=== PATIENT | female | born 1970 | race Caucasian/White ===

== ENCOUNTER 2017-04-01 08:51 | Emergency (ER) | payer OTHER ==
[~2017-04-01] VITALS: Wt 96.0 kg
[~2017-04-01 08:51] MED LIST: ACET325T45 PO; CODE118S PO; IBUP800T25 PO; NASO17 NASAL; ONDA4TAB95 PO; PHEN-651 PO
[2017-04-01] MEDS ORDERED: morphine 4 MG/ML VIAL IV STA (10:09)
[2017-04-01] MEDS ORDERED: ONDANSETRON 4 MG INJ IV STA (10:09)
[2017-04-01 10:52] LABS: BASOPHIL # 0.1 10^3/ul (0.0-0.1); BASOPHILS % 0.4 % (0.0-2.0); EOSINOPHILS % 0.1 % (0.0-7.0); HEMATOCRIT 39.7 % (37.0-47.0); HEMOGLOBIN 13.3 g/dl (12.0-16.0); LYMPHOCYTES % 6.9 % (15.0-51.0); MEAN CORPUSCULAR HGB CONC 33.5 g/dl (32.0-37.0); MEAN CORPUSCULAR VOLUME 95.4 fl (82.0-101.0); MEAN PLATELET VOLUME 10.3 fl (7.4-10.4); MONOCYTE # 0.8 10^3/ul (0.3-0.9); MONOCYTES % 5.4 % (0.0-11.0); NEUTROPHIL # 12.3 10^3/ul (1.6-7.5); NEUTROPHILS % 86.6 % (39.0-77.0); PLATELET COUNT 175 10^3/UL (140-415); RED BLOOD COUNT 4.16 10^6/ul (4.20-5.40); WHITE BLOOD COUNT 14.2 10^3/ul (4.8-10.8)
[2017-04-01 10:56] LABS: ADD UMIC YES; UR ASCORBIC ACID NEGATIVE (NEGATIVE); UR BACTERIA FEW /HPF (NONE SEEN); UR BILIRUBIN (Dip) NEGATIVE (NEGATIVE); UR BLOOD (Dip) NEGATIVE (NEGATIVE); UR CLARITY CLEAR (CLEAR); UR COLOR YELLOW (YELLOW); UR GLUCOSE (Dip) NEGATIVE (NEGATIVE); UR KETONES (Dip) NEGATIVE (NEGATIVE); UR LEUKOCYTE ESTERASE (Dip) TRACE Leu/ul (NEGATIVE); UR MUCUS FEW /HPF (NONE SEEN); UR NITRITE (Dip) NEGATIVE (NEGATIVE); UR RBC 2 /HPF (0-5); UR SPECIFIC GRAVITY (Dip) 1.023 (1.003-1.030); UR TOTAL PROTEIN (Dip) 2+ mg/dl (NEGATIVE); UR UROBILINOGEN (Dip) 2+ mg/dL (NEGATIVE)
[2017-04-01 11:10] LABS: ALBUMIN 4.5 g/dl (3.3-4.9); BILIRUBIN,INDIRECT 1.2 mg/dl (0-1.1); BILIRUBIN,TOTAL 1.2 mg/dl (0.2-1.3); CALCIUM 9.2 mg/dl (8.4-10.2); CREATININE 0.84 mg/dl (0.44-1.00); POTASSIUM 3.7 mmol/L (3.5-5.1)
--- NOTE | 2017-04-01 11:33 | RADRPT ---
PROCEDURE: CT Abdomen and Pelvis without contrast. CLINICAL INDICATION: Abdominal and pelvic pain. Left lower quadrant pain. TECHNIQUE: CT scan of the abdomen and pelvis without contrast was performed. Coronal and sagittal reformatted images were obtained from the axial source images. Images were reviewed on a high-resolu tion PACS workstation. Total exam DLP is 1368.99 mGy-cm. CTDIvol is 22.17 mGy. One or more of the following dose reduction techniques were used: Automated exposure control, adjustment of the mA and/ or kV according to patient size, use of iterative reconstruction technique. COMPARISON: CT scan of the abdomen and pelvis dated 01/28/2016. FINDINGS: The lung bases are normal. There is no pleural effusion. The liver is normal in size and diffusely decreased attenuation consistent with fatty metamorphosis. There is no focal hepatic lesion. The gallbladder is surgically absent with clips noted in the gallbladder bed. The spleen is normal in size. There is no focal splenic lesion. Both adrenals are normal with no enlargement or mass. The pancreas is unremarkable with no mass or evidence of pancreatitis. The right kidney is normal with no hydronephrosis, mass, or calculus. The left kidney is grossly abn ormal with marked hydronephrosis and marked thinning of the parenchyma. Calculi are present in the l eft kidney measuring up to 1.2 cm in diameter. The left renal pelvis is markedly enlarged measuring 10 x 11 cm and the left ureter is not visualized. The abdominal aorta is not dilated. There is calcification in the aorta consistent with atherosclero sis. There is no retroperitoneal lymphadenopathy or mass. There is no pelvic lymphadenopathy or mass. The bladder and distal ureters are normal. The periappendiceal region is unremarkable with no evidence of appendicitis. There has been interval surgery in the interval since the prior study with last in small bowel in the midabdomen. There is an umbilical hernia containing a small amount of small bowel without evide nce of obstruction. The bowel and mesentery are otherwise normal. There is no free fluid or free gas. There are mild degenerative changes of the spine. IMPRESSION: 1. Fatty metamorphosis of the liver. 2. Status post cholecystectomy. 3. Chronic hydronephrosis of the left kidney consistent with probable UPJ obstruction. Nonobstructi ng calculi in the left kidney as seen previously. 4. Atherosclerosis. 5. Surgery with last in the small bowel in the midabdomen. 6. Umbilical hernia containing small amount of small bowel without evidence of obstruction. 7. Mild degenerative changes of the spine. RPTAT: QQ .Charles Sin MD, Date Time Electronically viewed and signed by .Charles Sin MD, on 04/01/2017 11:33 .R/
[2017-04-01] MEDS ORDERED: ACET500C5 PO (12:06)
--- NOTE | 2017-04-01 12:45 | ERD ---
ER Documentation Chief Complaint Date/Time DATE: 04/01/17 TIME: 12:41 Chief Complaint ap since yesterday, no n/v HPI 46-year-old female is complaining of less abdominal pain since yesterday. States that she had hernia surgery about 1 year ago. Since then, she has pain on and off. Yesterday, the pain had been coming severe and constant. The pain increases with movement. Her last bowel movement was last night, which was normal. LMP 03/19/2017. Denies fever or chills. Denies vomiting, diarrhea or constipation. Denies dysuria. ROS All systems reviewed and are negative except as per history of present illness. Medications Home Meds Active Scripts Acetaminophen* (Tylophen*) 500 Mg Capsule, 1 CAP PO Q6H Y for PAIN AND OR ELEVATED TEMP, #20 CAP Prov:TEGAN DUMAS CAD CAM PROGRAMMER 04/01/17 Phenylephrine HCl/Acetaminophn (Sudafed PE Pressure+Pain Cplt) 1 Each Tablet, 1 EACH PO BID for 5 Days, TAB Prov:DEVON GUILLEN NP 08/24/15 Mometasone Furoate* (Nasonex*) 50 Mcg/[place] - 17 Gm [place].pump, 2 SPRAY NASAL BID, #1 BOTTLE TO EACH NOSTRIL Prov:DEVON GUILLEN NP 08/24/15 Acetaminophen* (Acetaminophen*) 325 Mg Tablet, 975 MG PO Q8 Y for PAIN AND OR ELEVATED TEMP, #30 TAB Prov:EFREN OROZCO DO 08/18/15 Ibuprofen* (Ibuprofen*) 800 Mg Tab, 800 MG PO TID, #20 TAB Prov:EFREN OROZCO DO 08/18/15 Promethazine w/Codeine (Phenergan w/Codeine Syrup) 5 Ml Syrup, 5 ML PO Q6 Y for COUGH, #120 ML Prov:EFREN OROZCO DO 08/18/15 Reported Medications Ondansetron Hcl* (Ondansetron Hcl*) 4 Mg Tablet, 4 MG PO Q6 Y for NAUSEA 09/09/13 Allergies Allergies: Coded Allergies: No Known Drug Allergies (Verified Allergy, Unknown, 04/01/17) Uncoded Allergies: PENICLLINS (Allergy, Unknown, 04/01/17) PMhx/Soc History of Surgery: Yes (cholecystectomy, ) Anesthesia Reaction: No Hx Neurological Disorder: No Hx Respiratory Disorders: Yes (bronchitis) Hx Cardiac Disorders: No Hx Psychiatric Problems: No Hx Miscellaneous Medical Probl: No Hx Alcohol Use: No Hx Substance Use: No Hx Tobacco Use: No Smoking Status: Never smoker Physical Exam Vitals Vital Signs Date Time Temp Pulse Resp B/P Pulse Ox O2 Delivery O2 Flow Rate FiO2 04/01/17 08:52 98.9 99 18 160/89 99 Physical Exam General: Well-developed, well-nourished, conscious and coherent, in no distress Skin: Warm and dry without rash, good texture and turgor Head: Normocephalic without evidence of trauma Eyes: Sclera and conjunctivae normal; pupils equal, round, and reactive to light; extraocular movements are intact Chest: Normal AP diameter. Good expansion without retractions. Nontender. Lungs are clear to auscultate bilaterally with good tidal volume Heart: Regular rate and rhythm. No murmur, rub, or gallops heard Abdomen: Soft, left-sided abdominal tenderness without masses, guarding, or rebound. Bowel sounds are active. No hepatosplenomegaly Back: Without spinal or CVA tenderness Pelvis: Nontender to palpation and stable to compression Extremities: Full range of motion. Good strength bilaterally. No clubbing, cyanosis, or edema. Peripheral pulses are intact. Sensation intact Neuro: Alert and oriented 4, GCS 15. Cranial nerves grossly intact. Motor and sensory exams nonfocal. Moves all extremities. Speech clear. Gait normal Result Diagram: 04/01/17 1039 04/01/17 1039 Results 24 hrs Laboratory Tests Test 04/01/17 10:39 White Blood Count 14.210^3/ul Red Blood Count 4.1610^6/ul Hemoglobin 13.3g/dl Hematocrit 39.7% Mean Corpuscular Volume 95.4fl Mean Corpuscular Hemoglobin 32.0pg Mean Corpuscular Hemoglobin Concent 33.5g/dl Red Cell Distribution Width 12.0% Platelet Count 73801^3/UL Mean Platelet Volume 10.3fl Neutrophils % 86.6% Lymphocytes % 6.9% Monocytes % 5.4% Eosinophils % 0.1% Basophils % 0.4% Nucleated Red Blood Cells % 0.0/100WBC Neutrophils # 12.310^3/ul Lymphocytes # 1.010^3/ul Monocytes # 0.810^3/ul Eosinophils # 0.010^3/ul Basophils # 0.110^3/ul Nucleated Red Blood Cells # 0.010^3/ul Urine Color YELLOW Urine Clarity CLEAR Urine pH 7.0 Urine Specific [place] 1.023 Urine Ketones NEGATIVEmg/dL Urine Nitrite NEGATIVEmg/dL Urine Bilirubin NEGATIVEmg/dL Urine Urobilinogen 2+mg/dL Urine Leukocyte Esterase TRACELeu/ul Urine Microscopic RBC 2/HPF Urine Microscopic WBC 4/HPF Urine Bacteria FEW/HPF Urine Mucus FEW/HPF Urine Hemoglobin NEGATIVEmg/dL Urine Glucose NEGATIVEmg/dL Urine Total Protein 2+mg/dl Sodium Level 140mmol/L Potassium Level 3.7mmol/L Chloride Level 104mmol/L Carbon Dioxide Level 27mmol/L Anion Gap 13 Blood Urea Nitrogen 10mg/dl Creatinine 0.84mg/dl Glucose Level 128mg/dl Calcium Level 9.2mg/dl Total Bilirubin 1.2mg/dl Direct Bilirubin 0.00mg/dl Indirect Bilirubin 1.2mg/dl Aspartate Amino Transf (AST/SGOT) 19IU/L Alanine Aminotransferase (ALT/SGPT) 29IU/L Alkaline Phosphatase 105IU/L Total Protein 9.0g/dl Albumin 4.5g/dl Globulin 4.50g/dl Albumin/Globulin Ratio 1.00 Lipase 39U/L Current Medications Medications (Trade) Dose Ordered Sig/Fariha Route PRN Reason Start Time Stop Time Status Last Admin Dose Admin Morphine Sulfate (morphine) 4 mg ONCE STAT IV 04/01/17 10:04/01/17 10:11 DC 04/01/17 10:46 Ondansetron HCl (Zofran Inj) 4 mg ONCE STAT IV 04/01/17 10:09 04/01/17 10:12 DC 04/01/17 10:46 PROCEDURE: CT Abdomen and Pelvis without contrast. CLINICAL INDICATION: Abdominal and pelvic pain. Left lower quadrant pain. TECHNIQUE: CT scan of the abdomen and pelvis without contrast was performed. Coronal and sagittal reformatted images were obtained from the axial source images. Images were reviewed on a high-resolution PACS workstation. Total exam DLP is 1368.99 mGy-cm. CTDIvol is 22.17 mGy. One or more of the following dose reduction techniques were used: Automated exposure control, adjustment of the mA and/or kV according to patient size, use of iterative reconstruction technique. COMPARISON: CT scan of the abdomen and pelvis dated 01/28/2016. FINDINGS: The lung bases are normal. There is no pleural effusion. The liver is normal in size and diffusely decreased attenuation consistent with fatty metamorphosis. There is no focal hepatic lesion. The gallbladder is surgically absent with clips noted in the gallbladder bed. The spleen is normal in size. There is no focal splenic lesion. Both adrenals are normal with no enlargement or mass. The pancreas is unremarkable with no mass or evidence of pancreatitis. The right kidney is normal with no hydronephrosis, mass, or calculus. The left kidney is grossly abnormal with marked hydronephrosis and marked thinning of the parenchyma. Calculi are present in the left kidney measuring up to 1.2 cm in diameter. The left renal pelvis is markedly enlarged measuring 10 x 11 cm and the left ureter is not visualized. The abdominal aorta is not dilated. There is calcification in the aorta consistent with atherosclerosis. There is no retroperitoneal lymphadenopathy or mass. There is no pelvic lymphadenopathy or mass. The bladder and distal ureters are normal. The periappendiceal region is unremarkable with no evidence of appendicitis. There has been interval surgery in the interval since the prior study with last in small bowel in the midabdomen. There is an umbilical hernia containing a small amount of small bowel without evidence of obstruction. The bowel and mesentery are otherwise normal. There is no free fluid or free gas. There are mild degenerative changes of the spine. IMPRESSION: 1. Fatty metamorphosis of the liver. 2. Status post cholecystectomy. 3. Chronic hydronephrosis of the left kidney consistent with probable UPJ obstruction. Nonobstructing calculi in the left kidney as seen previously. 4. Atherosclerosis. 5. Surgery with last in the small bowel in the midabdomen. 6. Umbilical hernia containing small amount of small bowel without evidence of obstruction. 7. Mild degenerative changes of the spine. RPTAT: QQ .Charles Sin MD, Date Time Electronically viewed and signed by .Charles Sin MD, on 04/01/2017 11:33 .R/ CC: PITERTEGAN Yosef CAD CAM PROGRAMMER Procedures/MDM 46-year-old female ED with left side abdominal pain 2 days. She given morphine 4 mg and Zofran 4 mg IV in the ED for pain. CBC is noted for a slight elevated WBC at 14.2, otherwise unremarkable. CMP and lipase are unremarkable. UA has trace leukocyte, negative nitrite, few bacteria. Likely UA represent dirty catch rather than urinary tract infection. negative. CT abdomen and pelvis without IV contrast showed chronic hydronephrosis of left kidney consistent with probable UPJ obstruction, umbilical hernia containing a small amount of small bowel without evidence of obstruction, among other findings. Compare with patient's CT scan from 1 year ago, the enlarged left kidney was also seen at that time. Patient does not have an elevated creatinine at this time. I am not certain whether a large kidney or the hernia was constipation pain, or some other reason. However, I am fairly confident the patient does not have any acute appendicitis, pancreatitis, bowel obstruction, ectopic , ovarian torsion, or ruptured ovarian cyst. I discussed patient with Dr. Nelson, who agrees that patient can be managed on an outpatient basis. Patient advised to follow-up with her surgeon regarding recurrence of the hernia, and with a urologist for her chronic hydronephrosis. Patient appears well, stable for discharge and outpatient management. Medical decision making shared with patient and family. Education provided to patient and family. Patient and family expressed understanding of the plan. Medications on discharge: Tylenol. Follow-up: Primary care provider in 2-3 days or return to ED if worse. Disclaimer: Inadvertent spelling and grammatical errors are likely due to EHR/ dictation software use and do not reflect on the overall quality of patient care. Also, please note that the electronic time recorded on this note does not necessarily reflect the actual time of the patient encounter. Departure Diagnosis: Primary Impression: Abdominal pain Abdominal location: left lower quadrant Qualified Code: R10.32 - Left lower quadrant pain Condition: Stable Patient Instructions: Abdominal Pain Referrals: PARVEEN PERES MD (PCP) SANCHEZ REDDING MD, SAMUEL MD Additional Instructions: Llame al doctor MAANA y rubi poornima MAC PARA DENTRO DE 2-3 [place].Dgale a la secretaria que nosotros le instruimos hacer esta mac.Avise o llame si abdi condicin se empeora antes de la mac. Regresa aqui si peor o no mejor. TEGAN DUMAS. PACO Apr 01, 2017 12:45
[2017-04-01 13:32] VITALS: BP 151/83; PULSE 81; RESP 17; TEMP 98.7
== END 2017-04-01 13:32 | disposition home or self-care (01) ==
LOC: FTE 08:51
DX: R10.32 Left lower quadrant pain (principal); R10.2 Pelvic and perineal pain
CPT/HCPCS: 36415; 74176; 80053; 81001; 83690; 85025; 96374; 96375; J2270; J2405; Z7502

== ENCOUNTER 2017-04-07 23:42 | Inpatient (IN) | payer OTHER ==
[~2017-04-07] VITALS: Ht 170.2 cm; Wt 95.0 kg
[~2017-04-07 23:42] MED LIST changes: +ACET500C5 PO
[2017-04-08] MEDS ORDERED: ACETAMINOPHEN 325 MG TAB PO STA (01:35)
[2017-04-08] MEDS ORDERED: ACET-141 PO (02:17)
[2017-04-08] MEDS ORDERED: HYDR-906 PO (02:17)
[2017-04-08 02:29] LABS: ABNORMAL IP MESSAGE 1; HEMATOCRIT 34.3 % (37.0-47.0); HEMOGLOBIN 12.1 g/dl (12.0-16.0); MEAN CORPUSCULAR HEMOGLOBIN 33.2 pg (29.0-33.0); MEAN CORPUSCULAR HGB CONC 35.3 g/dl (32.0-37.0); MEAN CORPUSCULAR VOLUME 94.2 fl (82.0-101.0); MEAN PLATELET VOLUME 10.2 fl (7.4-10.4); PLATELET COUNT 223 10^3/UL (140-415); RED BLOOD COUNT 3.64 10^6/ul (4.20-5.40); RED CELL DISTRIBUTION WIDTH 11.4 % (11.5-14.5); WHITE BLOOD COUNT 6.7 10^3/ul (4.8-10.8)
[2017-04-08 02:30] LABS: INR 1.22; PROTIME 15.5 Sec (12.2-14.2); PT RATIO 1.2
[2017-04-08 02:31] LABS: PARTIAL THROMBOPLASTIN TIME 29.9 Sec (25.0-35.0)
--- NOTE | 2017-04-08 02:41 | RADRPT ---
PROCEDURE: XR Chest. CLINICAL INDICATION: Possible sepsis. TECHNIQUE: Single frontal view of the chest. COMPARISON: 01/31/2016. FINDINGS: The cardiomediastinal silhouette is within normal limits. Improved lung inflation over the interval. The lungs are clear. No signs of pleural fluid or pneumothorax are seen. The osseous structures and soft tissues are unremarkable. IMPRESSION: No evidence for active cardiopulmonary disease. RPTAT: [facility] Physician Hugo Date Time Electronically viewed and signed by Kayleigh Beckwith Physician on 04/08/2017 02:41 RS/
[2017-04-08 03:08] LABS: TROPONIN-I 0.038 ng/ml (0.00-0.12)
[2017-04-08 03:12] LABS: ALBUMIN 3.9 g/dl (3.3-4.9); ALBUMIN/GLOBULIN RATIO 0.86; BILIRUBIN,INDIRECT 0.4 mg/dl (0-1.1); BILIRUBIN,TOTAL 0.4 mg/dl (0.2-1.3); CALCIUM 8.8 mg/dl (8.4-10.2); CREATININE 1.28 mg/dl (0.44-1.00); TOTAL PROTEIN 8.4 g/dl (6.1-8.1)
[2017-04-08 03:18] LABS: ANISOCYTOSIS 2+ (0-0); EOSINOPHILS % (M) 1 % (0-7); GIANT THROMBO% (M) 2 % (0-0); METAMYELOCYTES %M 4 % (0-0); MONOCYTES % (M) 4 % (0-11); PLATELET ESTIMATE NORMAL; POIKILOCYTOSIS 1+ (0-0); POLYCHROMASIA 3+ (0-0); REACTIVE LYMPHOCYTES% (M) 2 % (0-0)
[2017-04-08 03:21] LABS: POSITIVE DIFF @See below; POTASSIUM 2.9 mmol/L (3.5-5.1)
[2017-04-08] MEDS ORDERED: VANCOMYCIN 1 GM (PMX) 250 ML IVPB ONE (03:30)
[2017-04-08] MEDS ORDERED: CEFEPIME 2GM/50 ML (PMX) 50 ML IVPB STA (03:30)
[2017-04-08] MEDS ORDERED: SODIUM CHLORIDE 0.9% 1L BAG IV* STA (03:30)
[2017-04-08] MEDS ORDERED: POTASSIUM CHLORIDE 250 ML IVPB ONE (04:00)
--- NOTE | 2017-04-08 05:28 | ERA ---
ER Documentation Chief Complaint Date/Time DATE: 04/08/17 TIME: 05:26 Chief Complaint weak; took norco felt weak after that; hx of abd hernia HPI 46-year-old female is that she felt weakness fevers and chills today and felt worse after she took her [place] for chronic abdominal pain secondary to abdominal hernia. She says she has had a cough in her dysuria as well for the past 3 days. No nausea or vomiting. No other current complaints. ROS All systems reviewed and are negative except as per history of present illness. Medications Home Meds Reported Medications Acetaminophen* (Acetaminophen*) 500 MG Extra Strength Tablet, 500 MG PO Q4H Y for PAIN AND OR ELEVATED TEMP, TAB 04/08/17 Hydrocodone/Acetaminophen ([place] 5-325 Tablet) 1 Each Tablet, 1 EACH PO, TAB 04/08/17 Discontinued Reported Medications Ondansetron Hcl* (Ondansetron Hcl*) 4 Mg Tablet, 4 MG PO Q6 Y for NAUSEA 09/09/13 Discontinued Scripts Acetaminophen* (Tylophen*) 500 Mg Capsule, 1 CAP PO Q6H Y for PAIN AND OR ELEVATED TEMP, #20 CAP Prov:TEGAN DUMAS NP 04/01/17 Phenylephrine HCl/Acetaminophn (Sudafed PE Pressure+Pain Cplt) 1 Each Tablet, 1 EACH PO BID for 5 Days, TAB Prov:DEVON GUILLEN NP 08/24/15 Mometasone Furoate* (Nasonex*) 50 Mcg/[place] - 17 Gm [place].pump, 2 SPRAY NASAL BID, #1 BOTTLE TO EACH NOSTRIL Prov:DEVON GUILLEN [employer] MANAGER 08/24/15 Acetaminophen* (Acetaminophen*) 325 Mg Tablet, 975 MG PO Q8 Y for PAIN AND OR ELEVATED TEMP, #30 TAB Prov:EFREN OROZCO DO 08/18/15 Ibuprofen* (Ibuprofen*) 800 Mg Tab, 800 MG PO TID, #20 TAB Prov:EFREN OROZCO DO 08/18/15 Promethazine w/Codeine (Phenergan w/Codeine Syrup) 5 Ml Syrup, 5 ML PO Q6 Y for COUGH, #120 ML Prov:EFREN OROZCO DO 08/18/15 Allergies Allergies: Coded Allergies: No Known Drug Allergies (Unverified Allergy, Unknown, 04/08/17) Uncoded Allergies: PENICLLINS (Allergy, Unknown, 04/01/17) PMhx/Soc Medical and Surgical Hx: pt denies Medical Hx, pt denies Surgical Hx History of Surgery: Yes (cholecystectomy, hernia sugery) Anesthesia Reaction: No Hx Neurological Disorder: No Hx Respiratory Disorders: Yes (bronchitis) Hx Cardiac Disorders: No Hx Psychiatric Problems: No Hx Miscellaneous Medical Probl: No Hx Alcohol Use: No Hx Substance Use: No Hx Tobacco Use: No Smoking Status: Never smoker Physical Exam Vitals Vital Signs Date Time Temp Pulse Resp B/P Pulse Ox O2 Delivery O2 Flow Rate FiO2 04/08/17 02:43 101.4 106 20 98/58 100 Room Air 04/08/17 02:01 103.0 118 25 95/62 99 Room Air 04/07/17 23:49 103.0 143 23 125/63 99 Physical Exam Const: [] Head: Atraumatic Eyes: Normal Conjunctiva ENT: Normal External Ears, Nose and Mouth. Neck: Full range of motion..~ No meningismus. Resp: Clear to auscultation bilaterally Cardio: Regular rate and rhythm, no murmurs Abd: Soft, non tender, non distended. Normal bowel sounds Skin: No petechiae or rashes Back: No midline or flank tenderness Ext: No cyanosis, or edema Neur: Awake and alert Psych: Normal Mood and Affect Result Diagram: 04/08/17 0152 04/08/17 0152 Results 24 hrs Laboratory Tests Test 04/08/17 01:52 04/08/17 03:40 White Blood Count 6.710^3/ul Red Blood Count 3.6410^6/ul Hemoglobin 12.1g/dl Hematocrit 34.3% Mean Corpuscular Volume 94.2fl Mean Corpuscular Hemoglobin 33.2pg Mean Corpuscular Hemoglobin Concent 35.3g/dl Red Cell Distribution Width 11.4% Platelet Count 55632^3/UL Mean Platelet Volume 10.2fl Neutrophils % % Segmented Neutrophils % (Manual) 58% Band Neutrophils % (Manual) 23% Lymphocytes % % Lymphocytes % (Manual) 8% Reactive Lymphocytes % (Manual) 2% Monocytes % % Monocytes % (Manual) 4% Eosinophils % % Eosinophils % (Manual) 1% Basophils % % Metamyelocytes % (manual) 4% Nucleated Red Blood Cells % 0.0/100WBC Neutrophils # 10^3/ul Neutrophils # (Manual) 4.010^3/ul Band Neutrophils # 1.510^3/ul Absolute Lymphocytes (Manual) 0.510^3/ul Lymphocytes # 10^3/ul Reactive Lymphocytes # 0.110^3/ul Monocytes # 10^3/ul Absolute Monocytes (Manual) 0.210^3/ul Eosinophils # 10^3/ul Basophils # 10^3/ul Metamyelocytes # 0.210^3/ul Nucleated Red Blood Cells # 10^3/ul Platelet Estimate NORMAL Giant Platelets 2% Polychromasia 3+ Poikilocytosis 1+ Anisocytosis 2+ Macrocytosis 2+ Prothrombin Time 15.5Sec Prothrombin Time Ratio 1.2 INR International Normalized Ratio 1.22 Activated Partial Thromboplast Time 29.9Sec Sodium Level 137mmol/L Potassium Level 2.9mmol/L Chloride Level 104mmol/L Carbon Dioxide Level 22mmol/L Anion Gap 14 Blood Urea Nitrogen 14mg/dl Creatinine 1.28mg/dl Glucose Level 121mg/dl Lactic Acid Level 2.1mmol/L 1.5mmol/L Calcium Level 8.8mg/dl Total Bilirubin 0.4mg/dl Direct Bilirubin 0.00mg/dl Indirect Bilirubin 0.4mg/dl Aspartate Amino Transf (AST/SGOT) 21IU/L Alanine Aminotransferase (ALT/SGPT) 33IU/L Alkaline Phosphatase 153IU/L Troponin I 0.038ng/ml Total Protein 8.4g/dl Albumin 3.9g/dl Globulin 4.50g/dl Albumin/Globulin Ratio 0.86 Current Medications Medications (Trade) Dose Ordered Sig/Fariha Route PRN Reason Start Time Stop Time Status Last Admin Dose Admin Acetaminophen (Tylenol Tab) 650 mg ONCE STAT PO 04/08/17 01:35 04/08/17 01:36 DC 04/08/17 02:11 Sodium Chloride 2950 ml 2,950 ml BOLUS OVER 2 HOURS STAT IV* 04/08/17 03:30 04/08/17 03:47 DC 04/08/17 03:30 Cefepime HCl 50 ml @ 100 mls/hr ONCE STAT IVPB 04/08/17 03:30 04/08/17 03:59 DC 04/08/17 03:30 Vancomycin HCl 250 ml @ 125 mls/hr ONCE ONCE IVPB 04/08/17 03:30 04/08/17 05:29 04/08/17 04:00 Potassium Chloride (KCl 40 MEQ/250 ML NS) 250 ml @ 62.5 mls/hr ONCE ONCE IVPB 04/08/17 04:00 04/08/17 07:59 04/08/17 04:42 Procedures/MDM Patient's infectious symptoms have not stabilized and the patient is at risk of rapid decompensation. The patient will be admitted for careful hydration, antibiotic therapy, and infectious source control. Severe Sepsis Assessment: Infectious Source: Urine End organ damage indicated by: [Lactate > 2.0 mmol/L Severe Sepsis Managment: Blood Cultures X 2 before broad spectrum antibiotics initiated within 3 hours of recognition. 30 ml/kg NS bolus Completed Initial Lactate: 2.1 Repeat Lactate pending Critical Care: Time: 45 minutes Treatments/Evaluations: Emergent fluid management, while maintaining close respiratory support. Immediate broad spectrum antibiotic therapy. Simultaneous assessment for possible sources in order to direct therapy. Consideration for invasive and chemical support to prevent respiratory or cardiac collapse. Septic Shock Assessment (1 hour post 30 ml/kg fluid bolus): Hypotension (SBP < 90 or 40 mmHg drop, MAP < 65): [No] Lactic acid > 4.0 [No] Accepting Care Team: Current data and ongoing care discussed. Time: 5:30 AM Primary Provider: Hospitalist Consulting: Per hospitalist Outstanding Data: none EKG: Rate/Rhythm: [Normal Sinus Rhythm] QRS, ST, T-waves: [No changes consistent w/ acute ischemia] Impression: [No evidence of ischemia or arrhythmia] Chest X-ray 1V Interpreted by me: Soft Tissue: No acute abnormalities Bones: No acute abnormalities Mediastinum/Cardiac Silhouette/Lungs: [No acute abnormalities] Departure Diagnosis: Primary Impression: Sepsis Qualified Code: A41.9 - Sepsis, due to unspecified organism Condition: Serious RYANNEESTEBANRAMIRORONNELLGiuseppe Apr 08, 2017 05:28
[2017-04-08 06:37] VITALS: TEMP 98.7
[2017-04-08 07:37] VITALS: PULSE 98
[2017-04-08] MEDS ORDERED: VANCOMYCIN IV PER PHARMACY XX SCH (08:00)
[2017-04-08] MEDS ORDERED: morphine 2 MG INJ IV PRN (08:00)
[2017-04-08] MEDS ORDERED: ONDANSETRON 4 MG INJ IV PRN (08:00)
[2017-04-08] MEDS ORDERED: NACL 0.9% 3 ML SYG IV SCH (08:00)
[2017-04-08] MEDS ORDERED: ALBUTEROL/IPRATROPIUM (NEB) 3 ML AMP HHN PRN (08:00)
[2017-04-08 08:03] VITALS: BP 103/57; RESP 18
--- NOTE | 2017-04-08 08:06 | HP ---
Date/Time of Note Date/Time of Note DATE: 04/08/17 TIME: 08:01 Assessment/Plan VTE Prophylaxis VTE Prophylaxis Intervention: heparin Assessment/Plan Assessment/Plan 1. Sepsis, suspect secondary to UTI -IV antibiotic -Follow-up culture results 2. Abdominal pain -Pain is chronic. On my physical exam it seems to mostly localized in the left flank area so I am suspecting it could be from chronic congenital UPJ obstruction was probable underlying pyelonephritis given sepsis presentation -Treat infection -Pain management -Consider urology evaluation -Patient does have a small umbilical hernia, there is no sign of obstruction on physical exam as well as on imaging so unlikely pain is related to this 3. 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 She is accompanied by her daughter who is at the bedside who also provided history. When she presented to the ER she was found to be febrile with a temperature of 103 and a tachycardic with a heart rate of 143. WBC is 6.3. Potassium 2.9 and creatinine 1.28. She was seen here in our ER a week ago for abdominal pain. CT abdomen/pelvis at that time showed chronic hydronephrosis of the left kidney consistent with probable UPJ obstruction. Nonobstructing calculi in the left kidney as seen previously, Surgery with last in the small bowel in the midabdomen Umbilical hernia containing small amount of small bowel without evidence of obstruction. PMH/Family/Social Social History Smoking Status: Never smoker Exam/Review of Systems Vital Signs Vitals Vital Signs Date Time Temp Pulse Resp B/P Pulse Ox O2 Delivery O2 Flow Rate FiO2 04/08/17 07:37 98 20 107/74 100 Room Air 04/08/17 06:37 98.7 04/08/17 06:27 2 Exam Constitutional: alert, oriented, well developed Head: atraumatic, normocephalic Eyes: EOMI, nl lids Respiratory: clear to auscultation, normal air movement Cardiovascular: other (Tachycardic with regular rhythm) Gastrointestinal: non-tender, soft Extremities: normal pulses Labs Result Diagram: 04/08/1715104/08/17151 Medications Medications Current Medications Potassium Chloride (KCl 40 MEQ/250 ML NS) 250 ml @ 62.5 mls/hr ONCE ONCE IVPB Last administered on 04/08/17t 04:42; Admin Dose 62.5 MLS/HR; Start at 04:00; Stop 04/08/17 at 07:59 RONNELL LAW MD Apr 08, 2017 08:06
[2017-04-08 08:15] VITALS: Ht 170.2 cm; Wt 95.0 kg
[2017-04-08] MEDS: SOD CHLORIDE 0.9% 1,000 ML IV SCH ×2 (08:27→17:59)
[2017-04-08] MEDS: CEFEPIME 1GM/50 ML (PMX) 50 ML IVPB SCH ×2 (09:20→21:58)
[2017-04-08] MEDS: HEPARIN 5,000 UNIT/0.5 ML VIAL SC SCH ×2 (10:02→20:50)
[2017-04-08 10:22] LABS: CREATININE 1.3 mg/dl (0.44-1.00); MAGNESIUM 1.3 mg/dl (1.7-2.5); POTASSIUM 3.1 mmol/L (3.5-5.1)
[2017-04-08] MEDS ORDERED: PENDING SANTYL ORDER FOR WOUND CARE XX PRN (11:30)
[2017-04-08] MEDS: VANCOMYCIN 1 GM in NS 250 ML IVPB SCH (12:17)
[2017-04-08] MEDS: ACETAMINOPHEN 325 MG TAB PO PRN ×2 (13:21→20:45)
[2017-04-08 13:54] VITALS: BP 154/81; RESP 18
[2017-04-08] MEDS ORDERED: POTASSIUM CHLORIDE (SR) 20 MEQ TAB PO STA (15:19)
[2017-04-08] MEDS ORDERED: 1/2 NS + KCL 20 MEQ 1,000 ML IV SCH (15:30)
[2017-04-08] MEDS ORDERED: MAGNESIUM SULFATE 4 GM/100 ML 100 ML IVPB SCH (17:00)
[2017-04-08] MEDS ORDERED: POTASSIUM CHLORIDE 250 ML IVPB SCH (17:00)
[2017-04-08 20:00] VITALS: BP 142/74; RESP 18
[2017-04-08 21:55] LABS: ADD UMIC YES; UR ASCORBIC ACID NEGATIVE (NEGATIVE); UR BACTERIA FEW /HPF (NONE SEEN); UR BILIRUBIN (Dip) NEGATIVE (NEGATIVE); UR BLOOD (Dip) 2+ mg/dL (NEGATIVE); UR CLARITY CLEAR (CLEAR); UR COLOR YELLOW (YELLOW); UR GLUCOSE (Dip) NEGATIVE (NEGATIVE); UR KETONES (Dip) NEGATIVE (NEGATIVE); UR LEUKOCYTE ESTERASE (Dip) 1+ Leu/ul (NEGATIVE); UR NITRITE (Dip) NEGATIVE (NEGATIVE); UR RBC 2 /HPF (0-5); UR SPECIFIC GRAVITY (Dip) 1.013 (1.003-1.030); UR SQUAMOUS EPITHELIAL CELL FEW /HPF (FEW); UR TOTAL PROTEIN (Dip) NEGATIVE (NEGATIVE); UR UROBILINOGEN (Dip) 1+ mg/dL (NEGATIVE)
[2017-04-09 02:13] VITALS: BP 148/77; RESP 18
[2017-04-09] MEDS: ACETAMINOPHEN 325 MG TAB PO PRN ×3 (03:31→20:15)
[2017-04-09] MEDS: SOD CHLORIDE 0.9% 1,000 ML IV SCH ×2 (03:59→15:16)
--- NOTE | 2017-04-09 04:03 | CONS ---
DATE OF ADMISSION: 04/08/2017 DATE OF CONSULTATION: 04/08/2017 REQUESTING PHYSICIAN: Dr. lee. Dear Dr. Pedroza: Thank you for asking me to see this patient in urological consultation. HISTORY OF PRESENT ILLNESS: She is a 46-year-old female who is known to me from before. I have see n her in 2010, 2013 and she presented this time to the emergency room with generalized weakness, abd ominal pain and chills and the patient underwent a CT scan of the abdomen and pelvis on 04/01/2017 a nd the left kidney again was found to be hydronephrotic and has stones in it. The patient did have similar problem in the past in 2013 and 2010 and the left kidney had hardly any parenchyma in it; th erefore, it was decided to leave it alone and so far on the CT scan again it does not show any funct ion in that kidney. The patient had a blood culture that showed gram-positive rods in it and she is on antibiotic. SOCIAL HISTORY: She was born in [place]. She has been living in the [facility] for about 24 year s and she has 5 children. She does not smoke and does not drink any alcohol and there is no history of drug abuse. LABORATORY DATA: CBC shows a white count of 6.7, hemoglobin 12.1, hematocrit 34.3. BUN is 14, crea tinine 1.3, sodium 136, potassium 3.1, chloride 109, CO2 20. The blood cultures show gram-negative rods. No urine culture has been done. 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 The kidney has stones in it and also from the CT scan, there is hardly any renal parenc hyma left. PLAN: To do a urine culture and sensitivity by straight cath tonight and also do a nuclear medicine renal scan in a.m. to see if the kidney has any function at all. The patient should be continued o n the antibiotic based on her blood cultures. Dictated By: CHANEL MURILLO/CODI Conf#: [id number] DID#: [id number]
[2017-04-09] MEDS: VANCOMYCIN 1 GM in NS 250 ML IVPB SCH ×2 (04:33→11:10)
[2017-04-09 05:49] LABS: BASOPHILS % 0.3 % (0.0-2.0); EOSINOPHILS # 0.1 10^3/ul (0.0-0.5); EOSINOPHILS % 0.9 % (0.0-7.0); HEMATOCRIT 31.6 % (37.0-47.0); HEMOGLOBIN 10.5 g/dl (12.0-16.0); LYMPHOCYTES # 0.8 10^3/ul (0.8-2.9); LYMPHOCYTES % 6.2 % (15.0-51.0); MEAN CORPUSCULAR HEMOGLOBIN 32.1 pg (29.0-33.0); MEAN CORPUSCULAR HGB CONC 33.2 g/dl (32.0-37.0); MEAN CORPUSCULAR VOLUME 96.6 fl (82.0-101.0); MEAN PLATELET VOLUME 10.4 fl (7.4-10.4); MONOCYTE # 0.5 10^3/ul (0.3-0.9); MONOCYTES % 4.3 % (0.0-11.0); NEUTROPHIL # 10.6 10^3/ul (1.6-7.5); NEUTROPHILS % 87.8 % (39.0-77.0); PLATELET COUNT 176 10^3/UL (140-415); RED BLOOD COUNT 3.27 10^6/ul (4.20-5.40); RED CELL DISTRIBUTION WIDTH 11.9 % (11.5-14.5); WHITE BLOOD COUNT 12.1 10^3/ul (4.8-10.8)
[2017-04-09 06:32] LABS: ALBUMIN/GLOBULIN RATIO 0.68; BILIRUBIN,INDIRECT 0.3 mg/dl (0-1.1); BILIRUBIN,TOTAL 0.3 mg/dl (0.2-1.3); CALCIUM 8.2 mg/dl (8.4-10.2); CREATININE 0.8 mg/dl (0.44-1.00); MAGNESIUM 2.5 mg/dl (1.7-2.5); PHOSPHORUS 2.1 mg/dl (2.5-4.9); POTASSIUM 4.2 mmol/L (3.5-5.1); TOTAL PROTEIN 7.4 g/dl (6.1-8.1)
[2017-04-09 07:27] VITALS: BP 128/69; RESP 18
[2017-04-09] MEDS: CEFEPIME 1GM/50 ML (PMX) 50 ML IVPB SCH ×2 (08:29→20:30)
[2017-04-09] MEDS: HEPARIN 5,000 UNIT/0.5 ML VIAL SC SCH ×2 (08:30→20:25)
[2017-04-09 13:37] VITALS: BP 136/89; RESP 18
--- NOTE | 2017-04-09 16:18 | RADRPT ---
PROCEDURE: Renal scan flow and function study CLINICAL INDICATION: 46 -year-old patient with left -sided hydronephrosis, for renal function asses sment. TECHNIQUE: Following the intravenous injection of 10.2 mCi of Tc-99m MAG3, renal scan, flow and fu nction study was obtained. The patient was then given an intravenous injection of 40 mg of Lasix an d imaging acquisition was continued for additional 30 minutes. COMPARISON: No prior renal scans. CT scan of the abdomen and pelvis dated April 01, 2017. FINDINGS: Blood flow phase of the study demonstrates normal bolus aortic transit time, normal blood flow to th e right kidney and severely decreased blood flow to the left kidney. Function phase of the study demonstrates normal initial extraction of the right kidney and severely reduced initial extraction of the left kidney. On the delayed views, there is no evidence of abnormal retention of the radionuclide in the right co llecting renal system. Split function is 100 % for the right kidney. IMPRESSION: 1. Nonfunctioning left kidney. 2. Normal flow and function of the right kidney. 3. Split function is 100 % for the right kidney. RPTAT: HH .Adenike Melendrez MD, MD Date Time Electronically viewed and signed by .Adenike Melendrez MD, on 04/09/2017 16:18 .L/
--- NOTE | 2017-04-09 18:23 | PN ---
Date/Time of Note Date/Time of Note DATE: 04/09/17 TIME: 18:13 Assessment/Plan VTE Prophylaxis VTE Prophylaxis Intervention: heparin Lines/Catheters IV [facility]from [facility]): Peripheral IV Assessment/Plan Chief Complaint/Hosp Course 1. Sepsis with bacteremia secondary to UTI Blood culture shows gram-negative rods 2 out of 2 cultures DC vancomycin, continue cefepime 2. Chronic left flank pain likely secondary to persistent hydronephrosis Nuclear renal scan shows nonfunctioning left kidney Urology consultation appreciated, patient has a congenital ureteropelvic junction 3. Hypokalemia -Repleted Prophylaxis: Heparin Problems: Subjective 24 Hr Interval Summary Genitourinary: flank pain Exam/Review of Systems Vital Signs Vitals Vital Signs Date Time Temp Pulse Resp B/P Pulse Ox O2 Delivery O2 Flow Rate FiO2 04/09/17 13:37 98.1 91 18 136/89 97 04/08/17 07:37 Room Air 04/08/17 06:27 2 Intake and Output 04/08/17 04/08/17 04/09/17 15:00 23:00 07:00 Intake Total 300 ml 1695 ml 1820 ml Output Total 1100 ml Balance 300 ml 1695 ml 720 ml Exam Constitutional: alert, oriented Respiratory: clear to auscultation Cardiovascular: regular rate and rhythm Gastrointestinal: soft, No distended Musculoskeletal: nl extremities to inspection Results Result Diagram: 04/09/1717 04/09/1717 Results 24 hrs Laboratory Tests Test 04/08/17 21:25 04/09/17 05:17 Urine Color YELLOW Urine Clarity CLEAR Urine pH 5.0 Urine Specific [place] 1.013 Urine Ketones NEGATIVE Urine Nitrite NEGATIVE Urine Bilirubin NEGATIVE Urine Urobilinogen 1+ H Urine Leukocyte Esterase 1+ H Urine Microscopic RBC 2 Urine Microscopic WBC 8 H Urine Squamous Epithelial Cells FEW Urine Bacteria FEW A Urine Hemoglobin 2+ H Urine Glucose NEGATIVE Urine Total Protein NEGATIVE White Blood Count 12.1 #H Red Blood Count 3.27 L Hemoglobin 10.5 L Hematocrit 31.6 L Mean Corpuscular Volume 96.6 Mean Corpuscular Hemoglobin 32.1 Mean Corpuscular Hemoglobin Concent 33.2 Red Cell Distribution Width 11.9 Platelet Count 176 # Mean Platelet Volume 10.4 Neutrophils % 87.8 H Lymphocytes % 6.2 L Monocytes % 4.3 Eosinophils % 0.9 Basophils % 0.3 Nucleated Red Blood Cells % 0.0 Neutrophils # 10.6 H Lymphocytes # 0.8 Monocytes # 0.5 Eosinophils # 0.1 Basophils # 0.0 Nucleated Red Blood Cells # 0.0 Sodium Level 135 Potassium Level 4.2 Chloride Level 108 Carbon Dioxide Level 22 Anion Gap 9 Blood Urea Nitrogen 7 Creatinine 0.80 Glucose Level 117 Calcium Level 8.2 L Phosphorus Level 2.1 L Magnesium Level 2.5 # Total Bilirubin 0.3 Direct Bilirubin 0.00 Indirect Bilirubin 0.3 Aspartate Amino Transf (AST/SGOT) 25 Alanine Aminotransferase (ALT/SGPT) 36 Alkaline Phosphatase 133 H Total Protein 7.4 # Albumin 3.0 L Globulin 4.40 H Albumin/Globulin Ratio 0.68 Medications Medications Current Medications Sodium Chloride (NS) 1,000 ml @ 100 mls/hr Q10H IV Last administered on 15:16; Admin Dose 100 MLS/HR; Start 04/08/17 at 07:59; Stop 04/09/17 at 23:00 Ondansetron HCl (Zofran Inj) 4 mg Q6H PRN IV NAUSEA AND/OR VOMITING Last administered on 04/09/17 17:40; Admin Dose 4 MG; Start 04/08/17 at 08:00 Acetaminophen (Tylenol Tab) 650 mg Q6H PRN PO PAIN LEVEL 1-3 OR FEVER Last administered on 04/09/17 08:29; Admin Dose 650 MG; Start 04/08/17 at 08:00 Morphine Sulfate (morphine) 2 mg Q4H PRN IV SEVERE PAIN LEVEL 7-10 Last administered on 04/08/17 09:22; Admin Dose 2 MG; Start 04/08/17 at 08:00 Heparin Sodium (Porcine) 5000 unit 5,000 unit Q12 SC Last administered on 04/09 08:30; Admin Dose 5,000 UNIT; Start 04/08/17 at 09:00 Cefepime HCl (Maxipime 1gm/50 ml (Pmx)) 50 ml @ 100 mls/hr Q12 IVPB Last administered on 04/09/17 08:29; Admin Dose 100 MLS/HR; Start 04/08/17 at 09: 00 Miscellaneous Information (Pending [facility] Order For Wound Care) This patient dao... PRN PRN XX WOUND CARE; Start 10/10/17 at 11:30 TRINITY FLORES Apr 09, 2017 18:23
[2017-04-09 20:24] VITALS: BP 143/80; RESP 20
--- NOTE | 2017-04-09 21:07 | PN ---
Date/Time of Note Date/Time of Note DATE: 04/09/17 TIME: 21:00 Assessment/Plan VTE Prophylaxis VTE Prophylaxis Intervention: SCD's Lines/Catheters IV Catheter Type (from Nrs): Peripheral IV Assessment/Plan Chief Complaint/Hosp Course 46-year-old female presented to his left flank pain she had a positive blood cultures and the CT scan showed chronic left hydronephrosis with renal stones the patient presented with similar problems in the past and the left kidney has hardly any parenchyma left. Renal scan done today showed the left kidney to be nonfunctioning and 100% of the function is coming from the right kidney. Whether the left kidney is infected or not is difficult to determine unless we collect urine from the left kidney for culture and that could if the kidney is not infected introduce infection into it if one was to collect urine from the left kidney and drain the left kidney we will need to do either a cystoscopy and passed a ureteral catheter up to the left kidney or of the radiologist do a percutaneous drainage of the left kidney and sometime even put a nephrostomy tube but in that case the risk of infection is much higher and then one may be forced to remove the kidney. For now continue the antibiotic Problems: Subjective 24 Hr Interval Summary Constitutional: no complaints Eyes: no complaints ENT: no complaints Respiratory: no complaints Cardiovascular: no complaints Gastrointestinal: pain (Upper abdomen on the left side) Genitourinary: No dysuria Skin: no complaints Neurologic: no complaints Endocrine: no complaints Exam/Review of Systems Vital Signs Vitals Vital Signs Date Time Temp Pulse Resp B/P Pulse Ox O2 Delivery O2 Flow Rate FiO2 04/09/17 20:24 100.1 107 20 143/80 97 04/08/17 07:37 Room Air 04/08/17 06:27 2 Intake and Output 04/08/17 04/08/17 04/09/17 15:00 23:00 07:00 Intake Total 300 ml 1695 ml 1820 ml Output Total 1100 ml Balance 300 ml 1695 ml 720 ml Exam Constitutional: alert, oriented Psych: no complaints Head: normocephalic Eyes: nl conjunctiva ENMT: nl external ears & nose Neck: supple Respiratory: normal air movement Cardiovascular: No edema Gastrointestinal: soft Genitourinary - Female: No CVA tenderness Musculoskeletal: nl extremities to inspection Extremities: No calf tenderness, No edema Results Result Diagram: 04/09/17 0517 04/09/17 0517 Results 24 hrs Laboratory Tests Test 04/08/17 21:25 04/09/17 05:17 Urine Color YELLOW Urine Clarity CLEAR Urine pH 5.0 Urine Specific [place] 1.013 Urine Ketones NEGATIVE Urine Nitrite NEGATIVE Urine Bilirubin NEGATIVE Urine Urobilinogen 1+ H Urine Leukocyte Esterase 1+ H Urine Microscopic RBC 2 Urine Microscopic WBC 8 H Urine Squamous Epithelial Cells FEW Urine Bacteria FEW A Urine Hemoglobin 2+ H Urine Glucose NEGATIVE Urine Total Protein NEGATIVE White Blood Count 12.1 #H Red Blood Count 3.27 L Hemoglobin 10.5 L Hematocrit 31.6 L Mean Corpuscular Volume 96.6 Mean Corpuscular Hemoglobin 32.1 Mean Corpuscular Hemoglobin Concent 33.2 Red Cell Distribution Width 11.9 Platelet Count 176 # Mean Platelet Volume 10.4 Neutrophils % 87.8 H Lymphocytes % 6.2 L Monocytes % 4.3 Eosinophils % 0.9 Basophils % 0.3 Nucleated Red Blood Cells % 0.0 Neutrophils # 10.6 H Lymphocytes # 0.8 Monocytes # 0.5 Eosinophils # 0.1 Basophils # 0.0 Nucleated Red Blood Cells # 0.0 Sodium Level 135 Potassium Level 4.2 Chloride Level 108 Carbon Dioxide Level 22 Anion Gap 9 Blood Urea Nitrogen 7 Creatinine 0.80 Glucose Level 117 Calcium Level 8.2 L Phosphorus Level 2.1 L Magnesium Level 2.5 # Total Bilirubin 0.3 Direct Bilirubin 0.00 Indirect Bilirubin 0.3 Aspartate Amino Transf (AST/SGOT) 25 Alanine Aminotransferase (ALT/SGPT) 36 Alkaline Phosphatase 133 H Total Protein 7.4 # Albumin 3.0 L Globulin 4.40 H Albumin/Globulin Ratio 0.68 Imaging Free Text/Dictation Nuclear medicine renal scan: 1. Nonfunctioning left kidney. 2. Normal flow and function of the right kidney. 3. Split function is 100 % for the right kidney. Medications Medications Current Medications Sodium Chloride (NS) 1,000 ml @ 100 mls/hr Q10H IV Last administered on 15:16; Admin Dose 100 MLS/HR; Start 04/08/17 at 07:59; Stop 04/09/17 at 23:00 Ondansetron HCl (Zofran Inj) 4 mg Q6H PRN IV NAUSEA AND/OR VOMITING Last administered on 04/09/17 17:40; Admin Dose 4 MG; Start 04/08/17 at 08:00 Acetaminophen (Tylenol Tab) 650 mg Q6H PRN PO PAIN LEVEL 1-3 OR FEVER Last administered on 04/09/17 20:15; Admin Dose 650 MG; Start 04/08/17 at 08:00 Morphine Sulfate (morphine) 2 mg Q4H PRN IV SEVERE PAIN LEVEL 7-10 Last administered on 04/08/17 09:22; Admin Dose 2 MG; Start 04/08/17 at 08:00 Heparin Sodium (Porcine) 5000 unit 5,000 unit Q12 SC Last administered on 04/09 20:25; Admin Dose 5,000 UNIT; Start 04/08/17 at 09:00 Cefepime HCl (Maxipime 1gm/50 ml (Pmx)) 50 ml @ 100 mls/hr Q12 IVPB Last administered on 04/09/17 20:30; Admin Dose 100 MLS/HR; Start 04/08/17 at 09: 00 [facility] This patient dao... PRN PRN XX WOUND CARE; Start 04/08/17 at 11:30 CHANEL GONZALES MD Apr 09, 2017 21:07
[2017-04-10 02:00] VITALS: BP 139/79; RESP 20
[2017-04-10 05:44] LABS: BASOPHILS % 0.3 % (0.0-2.0); EOSINOPHILS # 0.1 10^3/ul (0.0-0.5); EOSINOPHILS % 1.2 % (0.0-7.0); HEMATOCRIT 32.1 % (37.0-47.0); HEMOGLOBIN 11.3 g/dl (12.0-16.0); LYMPHOCYTES # 1.1 10^3/ul (0.8-2.9); LYMPHOCYTES % 10.4 % (15.0-51.0); MEAN CORPUSCULAR HEMOGLOBIN 33.2 pg (29.0-33.0); MEAN CORPUSCULAR HGB CONC 35.2 g/dl (32.0-37.0); MEAN CORPUSCULAR VOLUME 94.4 fl (82.0-101.0); MONOCYTE # 0.6 10^3/ul (0.3-0.9); MONOCYTES % 5.8 % (0.0-11.0); NEUTROPHIL # 8.7 10^3/ul (1.6-7.5); NEUTROPHILS % 81.6 % (39.0-77.0); PLATELET COUNT 206 10^3/UL (140-415); RED CELL DISTRIBUTION WIDTH 11.5 % (11.5-14.5); WHITE BLOOD COUNT 10.6 10^3/ul (4.8-10.8)
[2017-04-10 06:02] LABS: CALCIUM 8.5 mg/dl (8.4-10.2); CREATININE 0.81 mg/dl (0.44-1.00)
[2017-04-10 08:04] VITALS: BP 130/76; RESP 16
[2017-04-10] MEDS: ACETAMINOPHEN 325 MG TAB PO PRN (08:28)
[2017-04-10] MEDS: CEFEPIME 1GM/50 ML (PMX) 50 ML IVPB SCH (08:28)
[2017-04-10] MEDS: HEPARIN 5,000 UNIT/0.5 ML VIAL SC SCH (08:31)
[2017-04-10 13:46] VITALS: BP 131/82; RESP 18
[2017-04-10] MEDS ORDERED: CIPR500T4 PO (14:21)
--- NOTE | 2017-04-10 14:22 | PDOCDIS ---
Discharge Instructions CONDITION Patient Condition: Good HOME CARE INSTRUCTIONS: Diet Instructions: Regular ACTIVITY: Activity Restrictions: No Restrictions FOLLOW UP/APPOINTMENTS Follow-up Plan Follow-up with your PCP in 1-2 weeks, follow-up with a urologist TRINITY FLORES Apr 10, 2017 14:22
--- NOTE | 2017-04-10 16:06 | DS ---
Date/Time of Note Date/Time of Note DATE: 04/10/17 TIME: 16:00 Discharge Summary Admission/Discharge Info Admit Date/Time Apr 08, 2017 at 05:26 Discharge Date/Time April 10, 2017 Discharge Diagnosis 1. Sepsis with bacteremia secondary to UTI Blood culture shows E. coli in 2 out of 2 cultures DC with Cipro 2. Chronic left flank pain likely secondary to persistent hydronephrosis Nuclear renal scan shows nonfunctioning left kidney Urology consultation appreciated, patient has a congenital ureteropelvic junction and will need either nephrectomy or nephrostomy tubes as an outpatient Patient does have outpatient follow-up with urology 3. 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 Patient had 2 out of 2 blood cultures positive for E. coli. Patient did recently have a CT abdomen that did show hydronephrosis of the left kidney with likely congenital ureteropelvic junction. Patient was seen by urology, renal nuclear scan was done and showed a nonfunctioning left kidney. Recommendation was to continue antibiotics at this time and the patient will ultimately need either nephrectomy or nephrostomy tubes or cystoscopy. Patient's left flank pain did resolve on day of discharge, had no acute complaints, her vitals labs and physical exam are stable and questions are answered. Patient was clear for DC per urology, patient did have a urologist that she was going to follow-up with in clinic. Home Meds Active Scripts Ciprofloxacin Hcl* (Ciprofloxacin Hcl*) 500 Mg Tablet, 500 MG PO BID for 7 Days , #14 TAB Prov:TRINITY FLORES 04/10/17 Reported Medications Acetaminophen* (Acetaminophen*) 500 MG Extra Strength Tablet, 500 MG PO Q4H Y for PAIN AND OR ELEVATED TEMP, TAB 04/08/17 Hydrocodone/Acetaminophen ([place] 5-325 Tablet) 1 Each Tablet, 1 EACH PO, TAB 04/08/17 Discontinued Reported Medications Ondansetron Hcl* (Ondansetron Hcl*) 4 Mg Tablet, 4 MG PO Q6 Y for NAUSEA 09/09/13 Discontinued Scripts Acetaminophen* (Tylophen*) 500 Mg Capsule, 1 CAP PO Q6H Y for PAIN AND OR ELEVATED TEMP, #20 CAP Prov:TEGAN DUMAS [employer] 04/01/17 Phenylephrine HCl/Acetaminophn (Sudafed PE Pressure+Pain Cplt) 1 Each Tablet, 1 EACH PO BID for 5 Days, TAB Prov:DEVON GUILLEN [employer] 08/24/15 Mometasone Furoate* (Nasonex*) 50 Mcg/Gerber - 17 Gm Gerber.pump, 2 SPRAY NASAL BID, #1 BOTTLE TO EACH NOSTRIL Prov:DEVON GUILLEN [employer] 08/24/15 Acetaminophen* (Acetaminophen*) 325 Mg Tablet, 975 MG PO Q8 Y for PAIN AND OR ELEVATED TEMP, #30 TAB Prov:EFREN OROZCO DO 08/18/15 Ibuprofen* (Ibuprofen*) 800 Mg Tab, 800 MG PO TID, #20 TAB Prov:EFREN OROZCO DO 08/18/15 Promethazine w/Codeine (Phenergan w/Codeine Syrup) 5 Ml Syrup, 5 ML PO Q6 Y for COUGH, #120 ML Prov:EFREN OROZCO DO 08/18/15 Follow-up Plan Follow-up with your PCP in 1-2 weeks, follow-up with a urologist Primary Care Provider Kwan Bustos MD Time spent on discharge: > 30 minutes TRINITY FLORES Apr 10, 2017 16:06
[2017-04-10] MEDS ORDERED: BUPIVACAINE 0.5%/EPI (SDV) 30 ML INJ ONE (16:40)
== END 2017-04-10 17:35 | disposition home or self-care (01) | DRG 872 ==
LOC: E/R 23:42 → MS2 04-08 05:26
PROVIDERS: ADMIT Internal Medicine; ATTEND Internal Medicine
DX: A41.51 Sepsis due to Escherichia coli [E. coli] (principal); Q62.39 Other obstructive defects of renal pelvis and ureter; Q62.11 Congenital occlusion of ureteropelvic junction; E87.6 Hypokalemia; N20.0 Calculus of kidney
CPT/HCPCS: 36415; 71010; 78707; 80048; 80053; 81001; 83605; 83735; 84100; 84484; 85025; 85610; 85730; 87040; 87086; 93005; 96374; 96375; A9562; J0692; J1644; J2270; J2405; J3370; J3480; J7030

== ENCOUNTER 2017-04-15 11:34 | Outpatient (CLI) | payer OTHER ==
[~2017-04-15] VITALS: Ht 162.6 cm; Wt 91.4 kg
[2017-04-15 11:34] VITALS: BP 133/79; PULSE 110; RESP 18; Ht 162.6 cm; Wt 91.4 kg
[~2017-04-15 11:34] MED LIST changes: +ACET-141 PO; -ACET325T45 PO; -ACET500C5 PO; +CIPR500T4 PO; -CODE118S PO; +HYDR-906 PO; -IBUP800T25 PO; -NASO17 NASAL; -ONDA4TAB95 PO; -PHEN-651 PO
--- NOTE | 2017-04-17 15:47 | PN ---
Date/Time of Note Date/Time of Note DATE: 04/17/17 TIME: 15:42 Outpatient Progress Note Chief Complaint Sepsis/pyelonephritis/hypokalemia HPI Sepsis/patient was recently admitted with sepsis, patient had a persistent hydronephrosis, patient has chronic left UPJ obstruction, more likely either congenital abnormalities nephrolithiasis, patient was presented with hydronephrosis and sepsis, at present patient has no fever chill, no left-sided flank pain, no fever chill, Hydronephrosis/no fever chill, no left flank pain, no pyuria, no frequency urgency or burning on urination, Hypokalemia/patient was hypokalemic, patient was supplemented, Review of Systems Const: No Fever, no chills, no Wt. loss, no Fatigue, normal appetite, no diaphoresis. Eyes: No pain, no discharge, no redness, no visual change, no foreign body. ENT: No pain, no bleeding, no congestion, no sore throat, no dysphagia, no discharge or rhinitis. Lymph: No adenopathy, no tender nodes, no lymphedema. Resp: No SOB, no cough, no sputum, no wheezing, no chest pain. CV: No chest pain, no palpitaions, no CAIN, no PND, no edema. GI: Normal appetite, no pain, no nausea, no vomiting, no diarrhea, no blood, no constipation. : No frequency, no urgency, no dysuria, no hematuria, no flank pain, no discharge, no bleeding. Musc: No bone/joint pain, no back pain, no neck pain, no knee pain, no restricted ROM. Skin: No rash, no skin lesions, no erythema, no laceration, no bruising, no pruritus. Neuro: No ORELLANA, no dizziness, no syncope, no seizure, no focal-weakness. Endo: No polyuria, no polydypsia, no dry-skin, no temp-intolerance. Psych: No hallucinations, no depression, no anxiety, no suicidal ideation. Ext: No edema, no pain, no ulcer, no weakness. Physical Exam Vital Signs Date Time Temp Pulse Resp B/P Pulse Ox O2 Delivery O2 Flow Rate FiO2 04/15/17 11:34 97.5 110 18 133/79 97 Room Air General Appearance: A 46 year-old female who appears well-developed, well- nourished, in no acute distress. HEENT: Head normocephalic, atraumatic. Pupils equal, round, reactive to light and accommodate. Sclerae are no jaundice. Nasal turbinates pink without erythema or nasal discharge. Mucous membranes pink and moist without lesions. Oropharynx clear without any exudate or discharge. NECK: Supple. Trachea midline, No thyromegaly, No cervical lymphadenopathy, No mass, No carotid bruits, No JVD, Carotid pulses 2+ bilaterally. PULMONARY: Clear to auscultaion bilaterally, No retractions, Chest expansion symmetric bilaterally, no rales, no ronchi, no dulness on percussion. CARDIAC: Normal SI and S2, Regular rate and rythm, no murmur, gallop, or rub. GASTROINTESTINAL: Abdomen is soft, non-tender, Non Rigid, No distention, Positive bowel sounds x4 quadrants, Liver normal. SKIN: Warm, dry, no rash, no bruise, no echmosis. EXTREMITIES: Bilateral lower extremities normal, no edema, no phlabitus, pulse palpable, no contracture. MUSCULOSKELETAL: Spine Normal, Non-tender, Normal range of motion, No swelling, no deformity, no clubbing, or cyanosis, the patient has no edema to bilateral lower extremities, dorsalis pedis pulses palpable bilaterally. NEUROLOGIC: The patient is awake, alert, oriented, responding to yes/no questions appropriately, moving all extremities, cranial nerve intact, normal strenght, normal power, normal coordination, normal gait. Allergies Coded Allergies: No Known Drug Allergies (Unverified Allergy, Unknown, 04/08/17) PMH Hydronephrosis/pyelonephritis/hypokalemia/UPJ obstruction Social Hx No smoking or drinking, Family Hx Noncontributory Patient History: Patient reports no known family medical history. Assessment/Plan Impression Sepsis/pyelonephritis/hypokalemia Plan Patient education done about her disease, and risk explained, Patient still has antibiotic, patient continued take antibiotic, patient asymptomatic at present, Patient encouraged to follow with the primary care physician and urologist, CBC and CMP, at present patient has no fever, patient did have fever Friday, Medications Home Meds Reported Medications Acetaminophen* (Acetaminophen*) 500 MG Extra Strength Tablet, 500 MG PO Q4H Y for PAIN AND OR ELEVATED TEMP, TAB 04/08/17 Discontinued Reported Medications Hydrocodone/Acetaminophen ([place] 5-325 Tablet) 1 Each Tablet, 1 EACH PO, TAB 04/08/17 Discontinued Scripts Ciprofloxacin Hcl* (Ciprofloxacin Hcl*) 500 Mg Tablet, 500 MG PO BID for 7 Days , #14 TAB Prov:TRINITY FLORES 04/10/17 SANGEETHA HURD MD Apr 17, 2017 15:47
== END 2017-04-15 15:56 | disposition home or self-care (01) ==
LOC: DCC 11:34
PROVIDERS: ATTEND Internal Medicine
DX: A41.9 Sepsis, unspecified organism (principal); N12 Tubulo-interstitial nephritis, not specified as acute or chronic; E87.6 Hypokalemia
CPT/HCPCS: G0463; J2250; J2405; J3010

== ENCOUNTER 2017-05-06 11:48 | Outpatient (CLI) | payer OTHER ==
[~2017-05-06] VITALS: Ht 162.6 cm; Wt 92.7 kg
[~2017-05-06 11:48] MED LIST changes: -CIPR500T4 PO; -HYDR-906 PO
[2017-05-06 11:59] VITALS: BP 162/82; PULSE 75; RESP 18; Ht 162.6 cm; Wt 92.7 kg
--- NOTE | 2017-05-06 12:53 | PN ---
Date/Time of Note Date/Time of Note DATE: 05/06/17 TIME: 12:49 Outpatient Progress Note Chief Complaint Hypertension/pyelonephritis/obesity HPI Hypertension/no headache or dizziness, no local focal weakness, no blood in the urine, not on any blood pressure medication, Pyelonephritis/patient was recently hospitalized with a pyelonephritis, patient doing better, no frequency urgency, no fever chill, no blood in the urine, improved, Obesity/patient slightly obese, no history of any hypothyroidism, Review of Systems Const: No Fever, no chills, no Wt. loss, no Fatigue, normal appetite, no diaphoresis. Slightly obese, Eyes: No pain, no discharge, no redness, no visual change, no foreign body. ENT: No pain, no bleeding, no congestion, no sore throat, no dysphagia, no discharge or rhinitis. Lymph: No adenopathy, no tender nodes, no lymphedema. Resp: No SOB, no cough, no sputum, no wheezing, no chest pain. CV: No chest pain, no palpitaions, no CAIN, no PND, no edema. GI: Normal appetite, no pain, no nausea, no vomiting, no diarrhea, no blood, no constipation. : No frequency, no urgency, no dysuria, no hematuria, no flank pain, no discharge, no bleeding. Musc: No bone/joint pain, no back pain, no neck pain, no knee pain, no restricted ROM. Skin: No rash, no skin lesions, no erythema, no laceration, no bruising, no pruritus. Neuro: No ORELLANA, no dizziness, no syncope, no seizure, no focal-weakness. Endo: No polyuria, no polydypsia, no dry-skin, no temp-intolerance. Psych: No hallucinations, no depression, no anxiety, no suicidal ideation. Ext: No edema, no pain, no ulcer, no weakness. Physical Exam Vital Signs Date Time Temp Pulse Resp B/P Pulse Ox O2 Delivery O2 Flow Rate FiO2 05/06/17 11:59 98.0 75 18 162/82 95 Room Air General Appearance: A 46 year-old female who appears well-developed, well- nourished, in no acute distress. Slightly obese, HEENT: Head normocephalic, atraumatic. Pupils equal, round, reactive to light and accommodate. Sclerae are no jaundice. Nasal turbinates pink without erythema or nasal discharge. Mucous membranes pink and moist without lesions. Oropharynx clear without any exudate or discharge. NECK: Supple. Trachea midline, No thyromegaly, No cervical lymphadenopathy, No mass, No carotid bruits, No JVD, Carotid pulses 2+ bilaterally. PULMONARY: Clear to auscultaion bilaterally, No retractions, Chest expansion symmetric bilaterally, no rales, no ronchi, no dulness on percussion. CARDIAC: Normal SI and S2, Regular rate and rythm, no murmur, gallop, or rub. GASTROINTESTINAL: Abdomen is soft, non-tender, Non Rigid, No distention, Positive bowel sounds x4 quadrants, Liver normal. SKIN: Warm, dry, no rash, no bruise, no echmosis. EXTREMITIES: Bilateral lower extremities normal, no edema, no phlabitus, pulse palpable, no contracture. MUSCULOSKELETAL: Spine Normal, Non-tender, Normal range of motion, No swelling, no deformity, no clubbing, or cyanosis, the patient has no edema to bilateral lower extremities, dorsalis pedis pulses palpable bilaterally. NEUROLOGIC: The patient is awake, alert, oriented, responding to yes/no questions appropriately, moving all extremities, cranial nerve intact, normal strenght, normal power, normal coordination, normal gait. Allergies Coded Allergies: No Known Drug Allergies (Unverified Allergy, Unknown, 04/08/17) PMH No change Social Hx No change Family Hx No change Patient History: Patient reports no known family medical history. Assessment/Plan Impression Hypertension Pyelonephritis resolved Obesity Plan Patient education done about her disease and condition, Patient encouraged to increase activity, lose weight, Patient encouraged to follow with the primary care physician, monitor kidney functions, Patient blood pressure is slightly elevated, will start metoprolol 25 mg twice daily #60 and patient may need adjustment of the medication, discussed with the patient to follow with the clinic, Medications Home Meds Reported Medications Acetaminophen* (Acetaminophen*) 500 MG Extra Strength Tablet, 500 MG PO Q4H Y for PAIN AND OR ELEVATED TEMP, TAB 04/08/17 SANGEETHA HURD MD May 06, 2017 12:53
== END 2017-05-06 17:00 | disposition home or self-care (01) ==
LOC: DCC 11:48
PROVIDERS: ATTEND Internal Medicine
DX: I10 Essential (primary) hypertension (principal); E66.9 Obesity, unspecified
CPT/HCPCS: G0463

== ENCOUNTER 2018-04-08 02:08 | Emergency (ER) | END 2018-04-08 04:43 | disposition home or self-care (01) ==